=== PATIENT | female | born 1995 | race Caucasian/White ===

== ENCOUNTER 2017-01-05 07:55 | Day surgery (SDC) | payer OTHER ==
[~2017-01-05] VITALS: Ht 162.6 cm; Wt 61.2 kg
[~2017-01-05 07:55] MED LIST: BACTROBAN22 GM TOP; CEPHALEXIN500 MG PO; DEPO-PROVE400 MG/1 M IM; IBUPROFEN400 MG PO; JULEBER 28 DAY1 EACH PO; NORCO 5-325 TA1 EACH PO; PYRIDIUM200 MG PO; SEPTRA DS TABL1 EACH PO; TYLENOL325 MG PO; VISTARIL25 MG PO
--- NOTE | 2017-01-05 10:52 | NUR ---
01/05/17 1052 Mary Ellen Barksdale 1049 PT REPORTED PAIN 09/28, MEDICAITON GIVEN PER EMAR. WARM BLANKET APPLIED.
--- NOTE | 2017-01-05 12:22 | NUR ---
PT RESTING-SEEMED ALITTLE NERVOUS. WORKED TO TAKE THE EDGINESS OFF SOME. HER MOTHER IS IN SUPPORT. SHE IS VERY PLEASANT, ENGAGING PT IS A VERY POLITE, PLEASANT PERSON. ALERT, ORIENTED AND SUPPORTED BY HER MOTHER. SHE SEEMED VERY ATTENTIVE, WAS WAITING FOR RN TO COME START HER IV. PT REQUESTED PRAYER. WILL FOLLOW NEEDED
[2017-01-05] MEDS ORDERED: KEFLEX500 MG PO (13:17)
[2017-01-05] MEDS ORDERED: NORCO 5-325 TA1 EACH PO (13:17)
--- NOTE | 2017-01-19 15:10 | OR ---
[facility] [address] [place], [place] [address] Signed DATE OF PROCEDURE: 01/05/17 PREOPERATIVE DIAGNOSIS Nasal obstruction due to septal deformity and inferior turbinate hypertrophy. POSTOPERATIVE DIAGNOSIS Nasal obstruction due to septal deformity and inferior turbinate hypertrophy. PROCEDURE Septoplasty, cautery bilateral inferior turbinates. SURGEON: Alonso Campbell MD ANESTHESIA: General, LMA, Sailaja Huerta CRNA. PREOPERATIVE HISTORY Nilsa is a 21-year-old lady with chronic nasal obstruction unresponsive to appropriate medications. She has a significant septal deformity to the left side with inferior turbinate hypertrophy. She is taken to the operating room for the above-mentioned procedures. OPERATIVE PROCEDURE AND FINDINGS After informed consent, the patient was taken to the operating room, placed in supine position where general LMA anesthesia was induced. The patient and procedure were verified. The patient received preoperative intranasal oxymetazoline and intravenous Ancef. Headlight speculum exam of the nasal cavity showed significant nasal obstruction on the left side with a caudal deflection nearly completely obstructive. The right side was open with moderate turbinate hypertrophy. Septal deformity was corrected starting with 1% Lidocaine with Epi injection submucosal. The mucosa was elevated off this deviated septal bone and cartilage and all deviated cartilage and bone was excised with Tarun. Airway was markedly improved in this manner. The septum was partially medialized with the speculum. Minimal bleeding. The inferior turbinates were then cauterized with a long handle needle point cautery starting on the left side. Multiple passes of submucosal starting on the anterior portion of the inferior turbinate on the medial and inferior surface extending all the way back to the posterior most portion. Excellent decongestion of the inferior turbinate was obtained in this manner. Same procedure on the right inferior turbinate. Packing was then placed. Equal amount of Merocel trimmed coated with Neosporin anteriorly over a pad. The hemostasis was verified. The pharynx was suctioned clear blood and secretions. The patient was then awakened, extubated, transported to recovery room in good condition. No complications. Electronically Signed By: ALONSO CAMPBELL MD 01/19/17 1510 PATIENT NAME: NILSA BEAL OPERATIVE REPORT DATE OF : 89 PHYSICIAN: ALONSO CAMPBELL MD REPORT #: [id number] REPORT IS CONFIDENTIAL AND NOT TO BE RELEASED WITHOUT AUTHORIZATION [address] [place], [place] [address] Signed BLOOD LOSS: Minimal. SPECIMEN: None. DRAINS: None. PACKING: One piece of Merocel each nostril. Alonso Campbell MD GC/Chele /[id number] cc: CLAYTON Patel Electronically Signed By: ALONSO CAMPBELL MD 01/19/17 1510 PATIENT NAME: NILSA BEAL OPERATIVE REPORT DATE OF : 89 PHYSICIAN: ALONSO CAMPBELL MD REPORT #: [id number] REPORT IS CONFIDENTIAL AND NOT TO BE RELEASED WITHOUT AUTHORIZATION
== END 2017-01-05 13:40 | disposition home or self-care (01) ==
LOC: DS 07:55
PROVIDERS: Otolaryngology
PROC: 095L0ZZ Destruction of Nasal Turbinate, Open Approach (ICD-10-PCS; 2017-01-05)
PROC: 09SM0ZZ Reposition Nasal Septum, Open Approach (ICD-10-PCS; principal; 2017-01-05 09:30)
DX: J34.2 Deviated nasal septum (principal); J34.3 Hypertrophy of nasal turbinates; J32.9 Chronic sinusitis, unspecified; J34.89 Other specified disorders of nose and nasal sinuses; F32.9 Major depressive disorder, single episode, unspecified; Z98.890 Other specified postprocedural states
CPT/HCPCS: 00160; J0690; J1100; J2250; J2405; J2704; J3010; J7120

== ENCOUNTER 2020-06-25 21:27 | Emergency (ER) | payer OTHER, BC ==
[~2020-06-25] VITALS: Ht 162.6 cm; Wt 60.0 kg
[~2020-06-25 21:27] MED LIST changes: +KEFLEX500 MG PO
== END 2020-06-25 23:43 | disposition home or self-care (01) ==
LOC: ED 21:27
DX: S62.521A Displaced fracture of distal phalanx of right thumb, initial encounter for closed fracture (principal); W22.8XXA Striking against or struck by other objects, initial encounter; F17.200 Nicotine dependence, unspecified, uncomplicated; Z79.899 Other long term (current) drug therapy
CPT/HCPCS: 73140; 99283-25